=== PATIENT | male | born 1985 | race African-American/Black ===

== ENCOUNTER 2019-02-14 03:42 | Emergency (ER) | payer SELFPAY ==
[~2019-02-14] VITALS: Ht 172.7 cm; Wt 91.9 kg
[2019-02-14 04:14] VITALS: BP 114/80
== END 2019-02-14 06:00 | disposition left against medical advice (07) ==
LOC: ER 03:42
DX: R68.89 Other general symptoms and signs (principal); Z53.21 Procedure and treatment not carried out due to patient leaving prior to being seen by health care provider